=== PATIENT | male | born 1980 | race Caucasian/White ===

== ENCOUNTER 2018-09-30 13:55 | Emergency (ER) | payer MEDICAID, MEDICARE ==
[2018-09-30 15:28] LABS: #Basophils 0.1 thou/uL (0.0-0.2); #Eosinphils 0.3 thou/uL (0.0-0.7); #Lymphocytes 2.8 thou/uL (1.20-3.40); #Monocytes 0.7 thou/uL (0.11-0.59); #Neutrophils 6.1 thou/uL (1.40-6.50); %Basophils 0.7 % (0.0-1.0); %Eosinophils 2.8 % (0.0-10.0); %Lymphocytes 27.7 % (21.0-51.0); %Monocytes 7.3 % (0.0-10.0); %Neutrophils 61.5 % (42.0-75.0); Mean Corpuscular HGB CONC 34.9 g/dL (32.0-36.0); Mean Corpuscular Hemoglobin 28.1 pg (27.0-31.0); Mean Corpuscular Volume 80.5 fL (78.0-98.0); Mean Platelet Volume 7.5 fL (7.4-10.4); Platelet Count 294 thou/uL (130-400); RBC Distribution Width 12.2 % (11.5-14.5); Red Blood Cell (RBC) Count 4.97 mill/uL (4.70-6.10)
[2018-09-30 15:55] LABS: ALT (SGPT) 17 U/L (8-55); AST (SGOT) 21 U/L (5-34); Albumin 4.4 g/dL (3.5-5.0); Alkaline Phosphatase 117 U/L (40-150); Anion Gap 15 mmol/L (10-20); BUN (Urea Nitrogen) 9 mg/dL (8.9-20.6); Bilirubin, Total 0.4 mg/dL (0.2-1.2); Calc. Creatinine Clearance 0 mL/min (70-130); Carbon Dioxide 24 mmol/L (22-29); Chloride 102 mmol/L (98-107); Estimated GFR-MDRD Greater than 90; Globulin 3.7 g/dL (2.4-3.5); Glucose 101 mg/dL (70-105); Potassium 3.7 mmol/L (3.5-5.1); Protein, Total 8.1 g/dL (6.0-8.3); Sodium 137 mmol/L (136-145)
--- NOTE | 2018-09-30 16:04 | CT ---
CT HEAD NONCONTRAST: Date: 09/30/18 HISTORY: Altered mental status. COMPARISON: 04/28/17. FINDINGS: There is no evidence of acute intracranial hemorrhage of infarct. Ventriculostomy shunt enters from t he right parietal level and extends across midline to the frontal horn of the left lateral ventricle. Ventricular system is decompressed. No mass effect or shift of midline structures. IMPRESSION: No evidence of shunt malfunction or other acute intracranial abnormalities. POS: STEVEN
--- NOTE | 2018-09-30 16:32 | RAD ---
RADIOGRAPH SHUNTOGRAM SKULL 2 VIEWS NECK 1 VIEW CHEST 1 VIEW ABDOMEN 1 VIEW: (5 VIEWS TOTAL) DATE: 09/30/18 HISTORY: 38-year-old male with altered mental status. FINDINGS: [employer] shunt catheter enters through a right parieto-occipital bur hole and travels medially and anterior ly intracranially, with distal tip slightly to the left of midline. There is a radiolucent component at the bur hole. The catheter descends the chest near midline and is looped in the left upper quadran t of the abdomen. There is no evidence of breakage in the catheter. There is a prominent dextroscolio sis at the mid thoracic spine. IMPRESSION: 1. Ventriculoperitoneal shunt catheter. 2. No discontinuity of the radiopaque portions. POS: MARGARET
== END 2018-09-30 17:02 | disposition home or self-care (01) ==
LOC: ERS 13:55
DX: R40.0 Somnolence (principal); E03.9 Hypothyroidism, unspecified; F84.0 Autistic disorder; Z79.899 Other long term (current) drug therapy
CPT/HCPCS: 36415; 70450; 75809; 80053; 85025

== ENCOUNTER 2019-06-24 06:54 | Day surgery (SDC) | payer MEDICARE, MEDICAID ==
[2019-06-23 16:30] VITALS: BMI 22.5
[2019-06-24] MEDS ORDERED: Oxymetazoline HCl 0.05% ( 15 ML ) ONE ×2 (08:01→10:13)
[2019-06-24] MEDS ORDERED: Midazolam HCl 2 mg/2 ml Vial ONE (08:17)
[2019-06-24] MEDS ORDERED: Lidocaine 2% Jelly 5 ML TUBE ONE (08:17)
[2019-06-24] MEDS ORDERED: Fentanyl 100 MCG/2 ML VIAL ONE (08:17)
[2019-06-24] MEDS ORDERED: Lidocaine 1% w/Epinephrine 1:100K 20 ML VIAL ONE (08:54)
[2019-06-24] MEDS ORDERED: EPINEPHrine 1 MG/ML AMP ONE (08:54)
[2019-06-24] MEDS ORDERED: Bacitracin Zinc Ointment 30 gm TUBE ONE (08:54)
[2019-06-24] MEDS ORDERED: Dexamethasone 20 MG/5 ML VIAL ONE (10:31)
[2019-06-24] MEDS ORDERED: Rocuronium Bromide 10 MG/ML (10ML VIAL) ONE (10:31)
[2019-06-24] MEDS ORDERED: Lidocaine 1% PF 5 ML VIAL ONE (10:31)
[2019-06-24] MEDS ORDERED: Ondansetron PF 4 MG/2 ML Vial ONE (10:31)
[2019-06-24] MEDS ORDERED: Glycopyrrolate 0.2 MG/ML 5 ML SYRINGE ONE (10:31)
[2019-06-24] MEDS ORDERED: ePHEDrine 50 MG/ML VIAL ONE (10:31)
[2019-06-24] MEDS ORDERED: PROPOFOL 200 MG/20 ML VIAL ONE (10:31)
--- NOTE | 2019-06-25 08:20 | OP ---
DATE OF PROCEDURE: 06/24/2019 PREOPERATIVE DIAGNOSES: 1. Developmental delay. 2. Profound septal deformity. 3. Hypertrophic inferior turbinates. POSTOPERATIVE DIAGNOSES: 1. Developmental delay. 2. Profound septal deformity. 3. Hypertrophic inferior turbinates. PROCEDURES PERFORMED: 1. Evaluation under anesthesia. 2. Septoplasty. 3. Bilateral nasal endoscopy with submucosal resection of inferior turbinates. DESCRIPTION OF PROCEDURE: SEPTOPLASTY: After local anesthesia was infiltrated into the submucoperichondrial plane, a standard [place] incision was made with a #15 blade down to the level of the septal cartilage. The caudal elevator was used to elevate the mucoperichondrium from the underlying cartilage. We then proceeded beyond the bony cartilaginous junction and elevated the bony periosteum as well. Great attention was paid to the spur to prevent rent formation in the septal flap. A transcartilaginous incision was then made, while preserving an adequate dorsal and caudal cartilaginous strut for tip support. The deformed cartilage was removed and disarticulated from the bony cartilaginous junction and maxillary crest. This was placed in saline and would later be crushed and returned to the mucoperichondrial envelope. We then elevated the contralateral periosteum from the bony cartilaginous region and removed the deformed portions of the bone and bony spurs. The cartilage was then crushed and placed back into the mucoperichondrial envelope and the mucosa was re-approximated with a quilting stitch composed of rapidly absorbent gut suture. The Pavillion incision was also closed with interrupted gut suture. At the completion of the case, King splints were placed and suture secured to the caudal septum. BILATERAL NASAL ENDOSCOPY WITH SUBMUCOSAL RESECTION OF INFERIOR TURBINATES: After consent was obtained, the patient was identified, brought to the operating room, and placed on the operating room table in the supine position. Consent was obtained, notifying the patient of the possibility of additional infections, bleeding, brain injury, and eye/orbital injury. The patient was placed on the operating room table, and general endotracheal anesthesia and intravenous access was obtained. The patient was then positioned, prepped and draped for endoscopic sinus surgery. Nasal preparation included trimming nasal vestibular hairs and spraying in topical Afrin. We then placed Afrin topical solution on nasal pledgets and strategically located them intranasally. The perinasal mucosa was injected with 1% lidocaine with 1:100,000 epinephrine in the submucoperichondrial plane of the septum, lateral nasal wall, and anterior to the uncinate. The patient was then prepped and draped in a sterile fashion and positioned for endoscopic sinus surgery. With the 0-degree endoscope, the patient underwent systematic nasal endoscopy. There were no suspicious internasal masses or lesions identified. We then focused our attention to the osteomeatal complex region under the middle turbinate. The inferior turbinates were visualized with a 0 degree endoscope and outfractured with a Cecelia elevator. The inferior medial aspect was cauterized with the electrocautery. Hemostasis was obtained . After adequate airway was established, we turned our attention to the contralateral side and used a similar procedure. Again, a [place] elevator was used to outfracture inferior turbinates under endoscopic visualization. With a suction cautery, the free inferior medial aspect was cauterized under direct visualization along the length of the inferior turbinate. At this point, we then turned our attention to the contralateral side and proceeded with endoscopic sinus surgery. At the completion of the case, Rice keel splints were placed in the ethmoid cavities after the ethmoidectomy. There were no complications. The patient tolerated the procedure well and was discharged to the recovery room in stable condition prior to return to the preoperative day stay with ultimate discharge home. Prescriptions for pain medication and antibiotics were provided. The patient received intramuscular Depo-Medrol during the case. Following the aforementioned procedure, we did a systematic evaluation of the ears, which were normal. Under microscopic visualization in the oral cavity, oropharynx, hypopharynx, and larynx, the patient was missing some incisors anteriorly and the molars had significant amount of tartar and associated gingival inflammation. The tongue was of normal size as were the tonsils. The patient was very retrognathic; however the laryngeal anatomy appeared normal and then the endotracheal tube was passed using a GlideScope. The patient did have a fair amount of rigidity and a lack of flexibility with regard to his jaw muscles and neck that created issues with positioning. Job ID: [id number]
== END 2019-06-24 13:00 | disposition home or self-care (01) ==
LOC: SDC 06:54
PROVIDERS: ATTEND Specialist
PROC: 09SM0ZZ Reposition Nasal Septum, Open Approach (ICD-10-PCS; principal; 2019-06-24)
PROC: 09TL8ZZ Resection of Nasal Turbinate, Via Natural or Artificial Opening Endoscopic (ICD-10-PCS; 2019-06-24)
DX: J34.2 Deviated nasal septum (principal); J34.3 Hypertrophy of nasal turbinates; G47.33 Obstructive sleep apnea (adult) (pediatric); E03.9 Hypothyroidism, unspecified; F79 Unspecified intellectual disabilities; M81.0 Age-related osteoporosis without current pathological fracture; F84.0 Autistic disorder; G91.9 Hydrocephalus, unspecified; Z79.899 Other long term (current) drug therapy; Z88.0 Allergy status to penicillin; Z88.8 Allergy status to other drugs, medicaments and biological substances; Z98.2 Presence of cerebrospinal fluid drainage device
CPT/HCPCS: J0171; J1100; J2001; J2250; J2405; J2704; J3010; J3490

== ENCOUNTER 2021-07-04 11:28 | Inpatient (IN) | payer MEDICARE, MEDICAID ==
[~2021-07-04 11:28] MED LIST: Iopamidol-370 76% 500 ML 1 ML ONE
[2021-07-04 12:25] LABS: #Basophils 0.1 thou/uL (0.0-0.2); #Eosinphils 0.3 thou/uL (0.0-0.7); #Lymphocytes 3.7 thou/uL (1.20-3.40); #Monocytes 0.8 thou/uL (0.11-0.59); #Neutrophils 6.1 thou/uL (1.40-6.50); %Basophils 1.2 % (0.0-1.0); %Eosinophils 2.4 % (0.0-10.0); %Lymphocytes 33.6 % (21.0-51.0); %Monocytes 7.4 % (0.0-10.0); %Neutrophils 55.4 % (42.0-75.0); Hemoglobin 13.7 g/dL (14.0-18.0); Mean Corpuscular HGB CONC 34.9 g/dL (32.0-36.0); Mean Corpuscular Hemoglobin 29.3 pg (27.0-31.0); Mean Corpuscular Volume 83.9 fL (78.0-98.0); Mean Platelet Volume 7.7 fL (7.4-10.4); Platelet Count 242 thou/uL (130-400); RBC Distribution Width 12.2 % (11.5-14.5); Red Blood Cell (RBC) Count 4.69 mill/uL (4.70-6.10)
[2021-07-04 12:50] LABS: ALT (SGPT) 51 U/L (8-55); AST (SGOT) 47 U/L (5-34); Albumin 4.1 g/dL (3.5-5.0); Alkaline Phosphatase 130 U/L (40-110); Anion Gap 12 mmol/L (10-20); BUN (Urea Nitrogen) 7 mg/dL (8.9-20.6); Bilirubin, Total 0.7 mg/dL (0.2-1.2); Calc. Creatinine Clearance 0 mL/min (70-130); Calcium 9.6 mg/dL (7.8-10.44); Carbon Dioxide 26 mmol/L (22-29); Chloride 99 mmol/L (98-107); Globulin 3.7 g/dL (2.4-3.5); Glucose 110 mg/dL (70-105); Potassium 3.2 mmol/L (3.5-5.1); Protein, Total 7.8 g/dL (6.0-8.3); Sodium 134 mmol/L (136-145)
[2021-07-04 13:24] LABS: Bacteria/HPF None Seen HPF (None Seen); Bilirubin Negative (Negative); Blood, Urine Trace (Negative); Clarity Clear (Clear); Glucose, Urine (Dipstick) Normal (Negative); Ketone, Urine Negative (Negative); Leukocyte Negative Leu/uL (Negative); Nitrite Negative (Negative); Protein, Urine (Dipstick) Negative (Neg-Trace); RBC/HPF 0-3 HPF (0-3); Specific Gravity, Urine 1.009 (1.002-1.036); Squamous Epithelial None Seen HPF (0-3); Urobilinogen Normal mg/dL (Less than 2); WBC/HPF 0-3 HPF (0-3)
[2021-07-04] MEDS ORDERED: Senokot S 8.6-50 MG TAB PO PRN (16:02)
[2021-07-04] MEDS ORDERED: Bisacodyl 5 MG TAB PO PRN (16:02)
[2021-07-04] MEDS ORDERED: Ondansetron ODT 4 MG TAB PO PRN (16:02)
[2021-07-04] MEDS ORDERED: Potassium Chloride 20 MEQ TAB PO SCH (16:30)
[2021-07-04] MEDS: Famotidine 20 MG TAB PO SCH (21:27)
[2021-07-04 21:30] VITALS: BMI 24.3
[2021-07-05] MEDS ORDERED: Labetalol HCl 100 MG/20 ML VIAL SLOW IVP SCH (05:00)
[2021-07-05] MEDS: Levothyroxine Sodium 88 MCG TAB PO SCH (05:07)
[2021-07-05] MEDS ORDERED: Polyethylene Glycol 3350 17 GM Packet PO SCH (07:00)
[2021-07-05 07:35] LABS: #Basophils 0.1 thou/uL (0.0-0.2); #Eosinphils 0.3 thou/uL (0.0-0.7); #Lymphocytes 2.9 thou/uL (1.20-3.40); #Monocytes 0.6 thou/uL (0.11-0.59); #Neutrophils 3.8 thou/uL (1.40-6.50); %Basophils 0.7 % (0.0-1.0); %Eosinophils 3.7 % (0.0-10.0); %Monocytes 8.1 % (0.0-10.0); %Neutrophils 49.5 % (42.0-75.0); Hemoglobin 13.3 g/dL (14.0-18.0); Mean Corpuscular HGB CONC 34.8 g/dL (32.0-36.0); Mean Corpuscular Hemoglobin 29.6 pg (27.0-31.0); Mean Corpuscular Volume 85.1 fL (78.0-98.0); Mean Platelet Volume 7.9 fL (7.4-10.4); Platelet Count 256 thou/uL (130-400); RBC Distribution Width 12.3 % (11.5-14.5); Red Blood Cell (RBC) Count 4.49 mill/uL (4.70-6.10); White Blood Cell (WBC) Count 7.6 thou/uL (4.8-10.8)
[2021-07-05 07:56] LABS: Anion Gap 14 mmol/L (10-20); BUN (Urea Nitrogen) 9 mg/dL (8.9-20.6); Calc. Creatinine Clearance 134 mL/min (70-130); Calcium 9.6 mg/dL (7.8-10.44); Carbon Dioxide 25 mmol/L (22-29); Chloride 101 mmol/L (98-107); Glucose 113 mg/dL (70-105); Potassium 3.7 mmol/L (3.5-5.1); Sodium 136 mmol/L (136-145)
[2021-07-05] MEDS ORDERED: Hydrochlorothiazide 25 MG TAB PO SCH (09:00)
[2021-07-05] MEDS ORDERED: LACTOSE REDUCED FOOD PO SCH ×2 (09:00)
[2021-07-05] MEDS ORDERED: LEVOTHYROXINE SODIUM 88 MCG PO SCH (09:00)
[2021-07-05] MEDS: Dextrose 5 %-0.45 % NaCl 1,000 ML IV SCH (09:08)
[2021-07-05] MEDS: Famotidine 20 MG TAB PO SCH ×2 (09:09→20:16)
[2021-07-05] MEDS: Multivitamin W/ Minerals 1 TAB PO SCH (09:09)
[2021-07-05] MEDS: Polyethylene Glycol 3350 17 GM Packet PO SCH (09:10)
[2021-07-05 13:16] LABS: SARS-CoV-2 NAA Rapid Test Not Detected (NotDetected)
[2021-07-05] MEDS ORDERED: cefTRIAXone\\ROCEPHIN 1 GM in Sodium Chloride 0.9% 100 ML IVPB SCH (14:30)
[2021-07-05] MEDS: metroNIDAZOLE 500 MG in Premix Bag 1 BAG IVPB SCH ×2 (15:42→23:16)
[2021-07-06] MEDS: Dextrose 5 %-0.45 % NaCl 1,000 ML IV SCH ×2 (03:35→23:23)
[2021-07-06] MEDS: metroNIDAZOLE 500 MG in Premix Bag 1 BAG IVPB SCH (05:39)
[2021-07-06] MEDS: Levothyroxine Sodium 88 MCG TAB PO SCH (05:39)
[2021-07-06] MEDS ORDERED: Levofloxacin 500 mg/D5W 100 ml Premix Bag ONE (08:46)
[2021-07-06] MEDS ORDERED: Bupivacaine PF 0.5% 30 ML VIAL ONE (10:13)
[2021-07-06] MEDS ORDERED: Lidocaine 1% w/Epinephrine 1:100K 30 ML VIAL ONE (10:13)
[2021-07-06] MEDS ORDERED: HYDROmorphone 0.5 MG/0.5 ML SYRINGE ONE (10:14)
[2021-07-06] MEDS ORDERED: Fentanyl 100 MCG/2 ML VIAL ONE (10:14)
[2021-07-06] MEDS ORDERED: Midazolam HCl 2 mg/2 ml Vial ONE (10:18)
[2021-07-06] MEDS ORDERED: Rocuronium Bromide 10 MG/ML (10ML VIAL) ONE (10:27)
[2021-07-06] MEDS ORDERED: ePHEDrine 50 MG/ML VIAL ONE (10:27)
[2021-07-06] MEDS ORDERED: Lidocaine 1% PF 5 ML VIAL ONE (10:27)
[2021-07-06] MEDS ORDERED: Ondansetron PF 4 MG/2 ML Vial ONE (10:27)
[2021-07-06] MEDS ORDERED: Dexamethasone 20 MG/5 ML VIAL ONE (10:27)
[2021-07-06] MEDS ORDERED: PROPOFOL 200 MG/20 ML VIAL ONE (10:27)
[2021-07-06] MEDS ORDERED: PHENYLEPHRINE-NS 100 MCG/ML 10 ML SYRINGE ONE (10:27)
[2021-07-06] MEDS ORDERED: Glycopyrrolate 0.2 MG/ML 5 ML SYRINGE ONE (10:27)
[2021-07-06] MEDS: Famotidine 20 MG TAB PO SCH ×2 (11:13→23:23)
[2021-07-06] MEDS: Multivitamin W/ Minerals 1 TAB PO SCH (11:14)
[2021-07-06] MEDS ORDERED: HYDROmorphone 2 MG/ML VIAL SLOW IVP PRN (12:32)
[2021-07-06] MEDS ORDERED: Meperidine HCl/PF 25 MG/ML VIAL SLOW IVP PRN (12:32)
[2021-07-06] MEDS ORDERED: Promethazine HCl 25 MG/ML VIAL IM PRN (12:32)
[2021-07-06] MEDS ORDERED: Ondansetron HCl/PF 4 MG/2 ML Vial IVP PRN (12:32)
[2021-07-06] MEDS ORDERED: Ketorolac Tromethamine 30 MG/ML VIAL IVP PRN (12:32)
[2021-07-06] MEDS ORDERED: Promethazine HCl 25 MG/ML VIAL IVPB PRN (12:32)
[2021-07-06] MEDS ORDERED: Ibuprofen 100 MG/5 ML UDCUP PO PRN (17:36)
[2021-07-06] MEDS ORDERED: Morphine 2 MG/ML VIAL SLOW IVP PRN (17:37)
[2021-07-06] MEDS ORDERED: traMADol HCl 50 MG TAB PO PRN (17:55)
[2021-07-06] MEDS: Acetaminophen 500 MG TAB PO SCH ×2 (18:18→23:21)
[2021-07-07] MEDS: Acetaminophen 500 MG TAB PO SCH ×3 (05:50→17:23)
[2021-07-07] MEDS: Levothyroxine Sodium 88 MCG TAB PO SCH (05:50)
[2021-07-07 06:54] LABS: ALT (SGPT) 59 U/L (8-55); AST (SGOT) 68 U/L (5-34); Albumin 3.9 g/dL (3.5-5.0); Alkaline Phosphatase 105 U/L (40-110); Anion Gap 14 mmol/L (10-20); BUN (Urea Nitrogen) 10 mg/dL (8.9-20.6); Bilirubin, Total 0.9 mg/dL (0.2-1.2); Calc. Creatinine Clearance 129 mL/min (70-130); Calcium 9.8 mg/dL (7.8-10.44); Carbon Dioxide 24 mmol/L (22-29); Chloride 102 mmol/L (98-107); Globulin 3.2 g/dL (2.4-3.5); Glucose 214 mg/dL (70-105); Potassium 4.5 mmol/L (3.5-5.1); Protein, Total 7.1 g/dL (6.0-8.3); Sodium 135 mmol/L (136-145)
[2021-07-07 07:36] LABS: Band 10 % (5-11); Hemoglobin 14.3 g/dL (14.0-18.0); Lymphocytes 8 % (21-51); MDiff Complete? YES; Mean Corpuscular HGB CONC 33.1 g/dL (32.0-36.0); Mean Corpuscular Hemoglobin 28.2 pg (27.0-31.0); Mean Platelet Volume 7.9 fL (7.4-10.4); Monocytes 4 % (0-10); Neutrophil 78 % (42-75); Platelet Count 317 thou/uL (130-400); RBC Distribution Width 12.3 % (11.5-14.5); Red Blood Cell (RBC) Count 5.08 mill/uL (4.70-6.10); White Blood Cell (WBC) Count 23.6 thou/uL (4.8-10.8)
[2021-07-07] MEDS: Multivitamin W/ Minerals 1 TAB PO SCH (08:42)
[2021-07-07] MEDS: Famotidine 20 MG TAB PO SCH ×2 (08:42→20:31)
[2021-07-07] MEDS: Polyethylene Glycol 3350 17 GM Packet PO SCH (08:42)
[2021-07-07] MEDS: Lactated Ringer's 1,000 ML IV SCH ×2 (10:12→23:46)
[2021-07-07] MEDS ORDERED: Metoprolol Tartrate 25 MG TAB PO SCH (12:54)
[2021-07-07] MEDS: Metoprolol Tartrate 25 MG TAB PO SCH (20:31)
[2021-07-08] MEDS: Acetaminophen 500 MG TAB PO SCH ×4 (00:40→17:13)
[2021-07-08] MEDS: Levothyroxine Sodium 88 MCG TAB PO SCH (05:38)
[2021-07-08] MEDS ORDERED: Sodium Chloride 0.9% 1,000 ML IV SCH (07:00)
[2021-07-08] MEDS: Metoprolol Tartrate 25 MG TAB PO SCH ×2 (08:21→19:49)
[2021-07-08] MEDS: Famotidine 20 MG TAB PO SCH ×2 (08:21→19:49)
[2021-07-08] MEDS: Multivitamin W/ Minerals 1 TAB PO SCH (08:21)
[2021-07-08 09:19] LABS: #Basophils 0.1 thou/uL (0.0-0.2); #Lymphocytes 2.9 thou/uL (1.20-3.40); #Monocytes 1.6 thou/uL (0.11-0.59); #Neutrophils 14.8 thou/uL (1.40-6.50); %Basophils 0.3 % (0.0-1.0); %Eosinophils 0.1 % (0.0-10.0); %Lymphocytes 14.8 % (21.0-51.0); %Monocytes 8.3 % (0.0-10.0); %Neutrophils 76.5 % (42.0-75.0); Mean Corpuscular Hemoglobin 29.7 pg (27.0-31.0); Mean Corpuscular Volume 87.2 fL (78.0-98.0); Mean Platelet Volume 8.2 fL (7.4-10.4); Platelet Count 267 thou/uL (130-400); RBC Distribution Width 12.6 % (11.5-14.5); Red Blood Cell (RBC) Count 4.39 mill/uL (4.70-6.10); White Blood Cell (WBC) Count 19.4 thou/uL (4.8-10.8)
[2021-07-08 09:39] LABS: ALT (SGPT) 54 U/L (8-55); AST (SGOT) 50 U/L (5-34); Albumin 3.6 g/dL (3.5-5.0); Alkaline Phosphatase 93 U/L (40-110); Anion Gap 12 mmol/L (10-20); BUN (Urea Nitrogen) 10 mg/dL (8.9-20.6); Bilirubin, Total 1.3 mg/dL (0.2-1.2); Calc. Creatinine Clearance 147 mL/min (70-130); Carbon Dioxide 28 mmol/L (22-29); Chloride 102 mmol/L (98-107); Globulin 2.9 g/dL (2.4-3.5); Glucose 149 mg/dL (70-105); Protein, Total 6.5 g/dL (6.0-8.3); Sodium 138 mmol/L (136-145)
[2021-07-08] MEDS: Lactated Ringer's 1,000 ML IV SCH (13:41)
[2021-07-09] MEDS: Acetaminophen 500 MG TAB PO SCH ×3 (00:46→12:00)
[2021-07-09] MEDS: Lactated Ringer's 1,000 ML IV SCH (03:47)
[2021-07-09] MEDS: Levothyroxine Sodium 88 MCG TAB PO SCH (05:23)
[2021-07-09 08:17] LABS: #Basophils 0.1 thou/uL (0.0-0.2); #Eosinphils 0.2 thou/uL (0.0-0.7); #Lymphocytes 3.4 thou/uL (1.20-3.40); #Monocytes 1.1 thou/uL (0.11-0.59); #Neutrophils 8.6 thou/uL (1.40-6.50); %Basophils 0.5 % (0.0-1.0); %Eosinophils 1.4 % (0.0-10.0); %Lymphocytes 25.4 % (21.0-51.0); %Monocytes 7.9 % (0.0-10.0); %Neutrophils 64.7 % (42.0-75.0); Hemoglobin 11.7 g/dL (14.0-18.0); Mean Corpuscular Hemoglobin 27.3 pg (27.0-31.0); Mean Corpuscular Volume 88.2 fL (78.0-98.0); Mean Platelet Volume 8.7 fL (7.4-10.4); Platelet Count 226 thou/uL (130-400); RBC Distribution Width 12.4 % (11.5-14.5); Red Blood Cell (RBC) Count 4.29 mill/uL (4.70-6.10); White Blood Cell (WBC) Count 13.3 thou/uL (4.8-10.8)
[2021-07-09 08:39] LABS: ALT (SGPT) 32 U/L (8-55); AST (SGOT) 25 U/L (5-34); Albumin 3.1 g/dL (3.5-5.0); Alkaline Phosphatase 82 U/L (40-110); Anion Gap 11 mmol/L (10-20); BUN (Urea Nitrogen) 12 mg/dL (8.9-20.6); Bilirubin, Total 0.8 mg/dL (0.2-1.2); Calc. Creatinine Clearance 158 mL/min (70-130); Calcium 8.4 mg/dL (7.8-10.44); Carbon Dioxide 27 mmol/L (22-29); Chloride 106 mmol/L (98-107); Globulin 2.6 g/dL (2.4-3.5); Glucose 111 mg/dL (70-105); Protein, Total 5.7 g/dL (6.0-8.3); Sodium 140 mmol/L (136-145)
[2021-07-09] MEDS ORDERED: Fleet Enema 133 ML BOT PR SCH (08:45)
[2021-07-09] MEDS: Multivitamin W/ Minerals 1 TAB PO SCH (09:55)
[2021-07-09] MEDS: Famotidine 20 MG TAB PO SCH (09:55)
[2021-07-09] MEDS: Polyethylene Glycol 3350 17 GM Packet PO SCH (09:55)
[2021-07-09] MEDS: Metoprolol Tartrate 25 MG TAB PO SCH (09:55)
[2021-07-09 17:52] VITALS: BP 144/82; TEMP 98.3
== END 2021-07-09 17:00 | disposition home or self-care (01) | DRG 336 ==
LOC: ERS 11:28 → SUATTDRO 11:28 → T4-A 16:02 → OBSVTOIN 07-05 13:40
PROVIDERS: ADMIT Family Medicine; ATTEND Internal Medicine
PROC: 0DNU4ZZ Release Omentum, Percutaneous Endoscopic Approach (ICD-10-PCS; principal; 2021-07-06)
PROC: 0FT44ZZ Resection of Gallbladder, Percutaneous Endoscopic Approach (ICD-10-PCS; 2021-07-06)
PROC: 0DTJ4ZZ Resection of Appendix, Percutaneous Endoscopic Approach (ICD-10-PCS; 2021-07-06)
PROC: 0WWG4JZ Revision of Synthetic Substitute in Peritoneal Cavity, Percutaneous Endoscopic Approach (ICD-10-PCS; 2021-07-06)
DX: K35.80 Unspecified acute appendicitis (principal); K80.00 Calculus of gallbladder with acute cholecystitis without obstruction; F84.0 Autistic disorder; G93.49 Other encephalopathy; E87.6 Hypokalemia; R03.0 Elevated blood-pressure reading, without diagnosis of hypertension; E03.9 Hypothyroidism, unspecified; I10 Essential (primary) hypertension; Z20.822 Contact with and (suspected) exposure to COVID-19; E86.0 Dehydration; M81.0 Age-related osteoporosis without current pathological fracture; Q03.9 Congenital hydrocephalus, unspecified; Z88.1 Allergy status to other antibiotic agents; Z88.8 Allergy status to other drugs, medicaments and biological substances; Z79.899 Other long term (current) drug therapy; Z88.0 Allergy status to penicillin
CPT/HCPCS: 36415; 70450; 72170; 74018; 74177; 75809; 80048; 80053; 81003; 81015; 84443; 85025; 85652; 86140; 87040; 88304; 96374; G0378; J0696; J1100; J1170; J1956; J2250; J2270; J2405; J2704; J3010; J3490; J7042; J7120; Q0162; Q9967; S0020; U0002

== ENCOUNTER 2021-08-06 12:08 | Inpatient (IN) | payer MEDICARE, MEDICAID ==
[2021-08-06] MEDS ORDERED: Ondansetron PF 4 MG/2 ML Vial ONE ×2 (12:50→18:41)
[2021-08-06] MEDS ORDERED: Ondansetron ODT 4 MG TAB ONE ×2 (13:44→18:39)
[2021-08-06 13:53] LABS: #Basophils 0.1 thou/uL (0.0-0.2); #Eosinphils 0.5 thou/uL (0.0-0.7); #Lymphocytes 2.7 thou/uL (1.20-3.40); #Monocytes 0.6 thou/uL (0.11-0.59); #Neutrophils 5.7 thou/uL (1.40-6.50); %Basophils 1.2 % (0.0-1.0); %Eosinophils 5.7 % (0.0-10.0); %Monocytes 6.5 % (0.0-10.0); %Neutrophils 58.7 % (42.0-75.0); Mean Corpuscular HGB CONC 33.5 g/dL (32.0-36.0); Mean Corpuscular Hemoglobin 28.3 pg (27.0-31.0); Mean Corpuscular Volume 84.5 fL (78.0-98.0); Mean Platelet Volume 8.1 fL (7.4-10.4); Platelet Count 217 thou/uL (130-400); RBC Distribution Width 12.2 % (11.5-14.5); Red Blood Cell (RBC) Count 4.95 mill/uL (4.70-6.10); White Blood Cell (WBC) Count 9.7 thou/uL (4.8-10.8)
[2021-08-06 14:26] LABS: ALT (SGPT) 43 U/L (8-55); AST (SGOT) 49 U/L (5-34); Albumin 4.3 g/dL (3.5-5.0); Alkaline Phosphatase 124 U/L (40-110); Anion Gap 19 mmol/L (10-20); BUN (Urea Nitrogen) 10 mg/dL (8.9-20.6); Bilirubin, Total 0.5 mg/dL (0.2-1.2); Calc. Creatinine Clearance 0 mL/min (70-130); Calcium 10.1 mg/dL (7.8-10.44); Carbon Dioxide 25 mmol/L (22-29); Chloride 98 mmol/L (98-107); Globulin 4.2 g/dL (2.4-3.5); Glucose 111 mg/dL (70-105); Potassium 3.9 mmol/L (3.5-5.1); Protein, Total 8.5 g/dL (6.0-8.3); Sodium 138 mmol/L (136-145)
[2021-08-06 15:05] LABS: SARS-CoV-2 NAA Rapid Test Not Detected (NotDetected)
[2021-08-06] MEDS ORDERED: Ondansetron PF 4 MG/2 ML Vial IVP PRN (18:56)
[2021-08-06 19:38] LABS: PTT 35.6 sec (22.9-36.1)
[2021-08-06 19:39] LABS: INR-International Normal Ratio 1.1; Prothrombin Time 14.5 sec (12.0-14.7)
[2021-08-06] MEDS ORDERED: hydrALAZINE 20 MG/ML VIAL SLOW IVP PRN (20:34)
[2021-08-06 23:18] VITALS: BMI 23.4
[2021-08-07 06:59] LABS: #Basophils 0.1 thou/uL (0.0-0.2); #Lymphocytes 3.4 thou/uL (1.20-3.40); #Monocytes 0.6 thou/uL (0.11-0.59); #Neutrophils 4.1 thou/uL (1.40-6.50); %Eosinophils 10.4 % (0.0-10.0); %Lymphocytes 36.5 % (21.0-51.0); %Neutrophils 45.1 % (42.0-75.0); Hemoglobin 13.4 g/dL (14.0-18.0); Mean Corpuscular HGB CONC 34.1 g/dL (32.0-36.0); Mean Corpuscular Hemoglobin 28.6 pg (27.0-31.0); Mean Corpuscular Volume 83.8 fL (78.0-98.0); Mean Platelet Volume 8.4 fL (7.4-10.4); Platelet Count 216 thou/uL (130-400); RBC Distribution Width 12.2 % (11.5-14.5); Red Blood Cell (RBC) Count 4.69 mill/uL (4.70-6.10); White Blood Cell (WBC) Count 9.2 thou/uL (4.8-10.8)
[2021-08-07 07:23] LABS: Anion Gap 14 mmol/L (10-20); BUN (Urea Nitrogen) 9 mg/dL (8.9-20.6); Calc. Creatinine Clearance 134 mL/min (70-130); Calcium 9.6 mg/dL (7.8-10.44); Carbon Dioxide 26 mmol/L (22-29); Chloride 102 mmol/L (98-107); Glucose 104 mg/dL (70-105); Potassium 3.6 mmol/L (3.5-5.1); Sodium 138 mmol/L (136-145)
[2021-08-07] MEDS ORDERED: Prevnar 13-Val Conj/PF 0.5 ML SYRINGE IM ONE (09:00)
[2021-08-07] MEDS ORDERED: FLU VACC QS2021-22(6MOS UP)/PF 60 MCG/0.5 ML SYRINGE IM ONE (09:00)
[2021-08-07 13:11] VITALS: BP 144/76; TEMP 98.8
== END 2021-08-07 14:15 | disposition home or self-care (01) | DRG 92 ==
LOC: ERS 12:08 → T4-B 19:09 → OBSVTOIN 19:09
PROVIDERS: ADMIT Student in an Organized Health Care Education/Training Program; ATTEND Internal Medicine
PROC: B0281ZZ Computerized Tomography (CT Scan) of Cerebral Ventricle(s) using Low Osmolar Contrast (ICD-10-PCS; principal; 2021-08-06)
DX: Z45.41 Encounter for adjustment and management of cerebrospinal fluid drainage device (principal); F84.0 Autistic disorder; Q03.9 Congenital hydrocephalus, unspecified; Z20.822 Contact with and (suspected) exposure to COVID-19; E03.9 Hypothyroidism, unspecified; M81.0 Age-related osteoporosis without current pathological fracture; I10 Essential (primary) hypertension; G47.33 Obstructive sleep apnea (adult) (pediatric); J30.9 Allergic rhinitis, unspecified; K21.9 Gastro-esophageal reflux disease without esophagitis; Z88.6 Allergy status to analgesic agent; Z88.1 Allergy status to other antibiotic agents; Z88.8 Allergy status to other drugs, medicaments and biological substances; Z79.899 Other long term (current) drug therapy; Z79.890 Hormone replacement therapy; Z79.51 Long term (current) use of inhaled steroids
CPT/HCPCS: 36415; 70450; 75809; 80048; 80053; 85025; 85610; 85730; 90471; 90686; 93005; 96374; G0008; J0360; J2405; Q0162; U0002

== ENCOUNTER 2021-09-04 14:10 | Outpatient (CLI) | payer MEDICARE, MEDICAID | END 2021-09-04 14:11 | disposition home or self-care (01) | LOC: CT 14:10 | PROVIDERS: ATTEND Neurological Surgery | DX: T85.618A Breakdown (mechanical) of other specified internal prosthetic devices, implants and grafts, initial encounter (principal) | CPT/HCPCS: 70450 ==

== ENCOUNTER 2024-11-12 10:18 | Emergency (ER) | payer MEDICARE, MEDICAID ==
[2024-11-12 11:16] LABS: #Basophils 0.05 10x3/uL (0.0-0.2); %Basophils 0.7 % (0.0-1.0); %Eosinophils 3.5 % (0.0-10.0); %Monocytes 6.9 % (0.0-10.0); %Neutrophils 49.6 % (42.0-75.0); Hematocrit 39.3 % (42.0-52.0); Hemoglobin 13.4 g/dL (14.0-18.0); Mean Corpuscular HGB CONC 34.1 g/dL (32.0-36.0); Mean Corpuscular Hemoglobin 26.9 pg (27.0-31.0); Mean Corpuscular Volume 78.9 fL (78.0-98.0); Platelet Count 167 10x3/uL (130-400); RBC Distribution Width 13.6 % (11.5-14.5); Red Blood Cell (RBC) Count 4.98 mill/uL (4.70-6.10)
[2024-11-12 11:35] LABS: ALT (SGPT) 25 U/L (8-55); AST (SGOT) 29 U/L (5-34); Albumin 3.6 g/dL (3.5-5.0); Alkaline Phosphatase 117 U/L (40-110); Anion Gap 12 mmol/L (10-20); BUN (Urea Nitrogen) 9 mg/dL (8.9-20.6); Bilirubin, Total 0.6 mg/dL (0.2-1.2); Calc. Creatinine Clearance 0 mL/min (70-130); Calcium 9.3 mg/dL (7.8-10.44); Carbon Dioxide 28 mmol/L (22-29); Chloride 100 mmol/L (98-107); Estimated GFR 122; Globulin 4.4 g/dL (2.4-3.5); Glucose 133 mg/dL (70-105); INR-International Normal Ratio 1.2; Potassium 3.2 mmol/L (3.5-5.1); Prothrombin Time 14.8 sec (12.0-14.7); Sodium 137 mmol/L (136-145)
[2024-11-12 12:03] LABS: Bacteria/HPF None Seen HPF (None Seen); Bilirubin Negative (Negative); Blood, Urine Negative (Negative); CAUTI Indications for Culture Alt mental st,lethar; Clarity Clear (Clear); Glucose, Urine (Dipstick) Normal (Negative); Ketone, Urine Negative (Negative); Leukocyte Negative Leu/uL (Negative); Nitrite Negative (Negative); Protein, Urine (Dipstick) 20 mg/dL (Neg-Trace); RBC/HPF 0-3 HPF (0-3); Specific Gravity, Urine 1.017 (1.002-1.036); Squamous Epithelial None Seen HPF (0-3); Urobilinogen Normal mg/dL (Less than 2); WBC/HPF 0-3 HPF (0-3); pH, Urine 7.5 (5.0-9.0)
[2024-11-12 12:04] LABS: Urine Culture Reflex No No
== END 2024-11-12 13:10 | disposition home or self-care (01) ==
LOC: ERS 10:18
DX: T85.890A Other specified complication of nervous system prosthetic devices, implants and grafts, initial encounter (principal); R11.10 Vomiting, unspecified; E03.9 Hypothyroidism, unspecified; F84.0 Autistic disorder; M81.0 Age-related osteoporosis without current pathological fracture; Z79.899 Other long term (current) drug therapy
CPT/HCPCS: 36415; 70450; 75809; 80053; 81001; 85025; 85610

== ENCOUNTER 2024-12-03 10:27 | Outpatient (CLI) | payer OTHER, MEDICAID | END 2024-12-03 10:28 | disposition home or self-care (01) | LOC: SCSRAD 10:27 | PROVIDERS: ATTEND Family Medicine | DX: R13.12 Dysphagia, oropharyngeal phase (principal) | CPT/HCPCS: 71046 ==